=== PATIENT | male | born 1990 ===

== ENCOUNTER 2018-09-04 08:04 | Emergency (ER) | payer OTHER ==
[~2018-09-04] VITALS: Ht 188 cm; Wt 130.0 kg
[2018-09-04 08:14] VITALS: BP 122/72
[2018-09-04] MEDS ORDERED: OFLO5DRO EACHEYE (08:34)
--- NOTE | 2018-09-04 16:35 | ED.ADGEN ---
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 Symptoms began 2 days ago. Patient has not worn contact lenses since that time. Reports some drainage matting left eyelids and blurred vision which clears with blinking wiping. No other symptoms or complaints. [] Review of Systems Review of Systems Review symptoms as per history of present illness. All other review symptoms are negative. All other systems were reviewed and found to be within normal limits, except as documented in this note. Allergies Allergies Allergies Coded Allergies Type Severity Reaction Last Updated Verified No Known Drug Allergies 09/04/18 No Physical Exam Physical Exam Constitutional: Well developed, well nourished, no acute distress, non-toxic appearance. [] HENT: Normocephalic, atraumatic, bilateral external ears normal, oropharynx moist, no oral exudates, nose normal. [] Eyes: PERRLA, EOMI, B conjunctiva injected, and drainage left eyelid, matting of eyelids,] Neck: Normal range of motion, no tenderness, supple, no stridor. [] Cardiovascular:Heart rate regular rhythm, no murmur [] Lungs & Thorax: Bilateral breath sounds clear to auscultation [] Abdomen: Bowel sounds normal, soft, no tenderness, no masses, no pulsatile masses. [] Skin: Warm, dry, no erythema, no rash. [] Back: No tenderness, no CVA tenderness. [] Extremities: No tenderness, no cyanosis, no clubbing, ROM intact, no edema. [] Neurologic: Alert and oriented X 3, normal motor function, normal sensory function, no focal deficits noted. [] Psychologic: Affect normal, judgement normal, mood normal. [] Current Patient Data Vital Signs Vital Signs Date Time Temp Pulse Resp B/P (MAP) Pulse Ox O2 Delivery O2 Flow Rate FiO2 09/04/18 08:14 98.2 98 20 100 Room Air EKG EKG [] Radiology/Procedures Radiology/Procedures [] Course & Med Decision Making Course & Med Decision Making Pertinent Labs and Imaging studies reviewed. (See chart for details) [Topical abx. ] Final Impression Final Impression [1. Bacterial conjunctivitis] Dragon Disclaimer Dragon Disclaimer This electronic medical record was generated, in whole or in part, using a voice recognition dictation system. SHABBIR BROTHERS DO Sep 04, 2018 16:35
== END 2018-09-04 08:30 | disposition home or self-care (01) ==
LOC: ER 08:04
DX: H10.89 Other conjunctivitis (principal); B96.89 Other specified bacterial agents as the cause of diseases classified elsewhere
CPT/HCPCS: 99283

== ENCOUNTER 2019-03-15 19:17 | Emergency (ER) | payer OTHER ==
[~2019-03-15] VITALS: Ht 188 cm; Wt 116.1 kg
[~2019-03-15 19:17] MED LIST: OFLO5DRO EACHEYE
[2019-03-15] MEDS ORDERED: IV NORMAL SALINE 1,000ML 1,000 ML IV SCH (19:32)
--- NOTE | 2019-03-15 19:32 | PHYS DOC ---
Past History Past Medical History: No Pertinent History Past Surgical History: No Surgical History Smoking: Cigarettes Alcohol Use: Occasionally Drug Use: None Adult General Chief Complaint Chief Complaint: FEVER HPI HPI Patient is a 29-year-old male presents complaining of fever, nausea, vomiting, and diarrhea for the past day. No blood in the stool or emesis. Fever is subjective, he did not take his temperature. Recent travel. He was unable to tolerate pineapple juice, but was able to tolerate watermelon juice. Nothing makes the symptoms better or worse. Notes that he has some left-sided abdominal cramping. No sick family members or contacts. No previous surgical history.[] Review of Systems Review of Systems Constitutional: See history of present illness[] Eyes: Denies change in visual acuity, redness, or eye pain [] HENT: Denies nasal congestion or sore throat [] Respiratory: Denies cough or shortness of breath [] Cardiovascular: No chest pain or palpitations[] GI: History of present illness[] : Denies dysuria or hematuria [] Musculoskeletal: Denies back pain or joint pain [] Integument: Denies rash or skin lesions [] Neurologic: Denies headache, focal weakness or sensory changes [] Endocrine: Denies polyuria or polydipsia [] All other systems were reviewed and found to be within normal limits, except as documented in this note. Allergies Allergies Allergies Coded Allergies Type Severity Reaction Last Updated Verified No Known Drug Allergies 09/04/18 No Physical Exam Physical Exam Constitutional: Well developed, well nourished, no acute distress, non-toxic appearance. [] HENT: Normocephalic, atraumatic, bilateral external ears normal, oropharynx moist, no oral exudates, nose normal. [] Eyes: PERRLA, EOMI, conjunctiva normal, no discharge. [] Neck: Normal range of motion, no tenderness, supple, no stridor. [] Cardiovascular:Heart rate is tachycardic with a regular rhythm, no murmur [] Lungs & Thorax: Bilateral breath sounds clear to auscultation [] Abdomen: Bowel sounds normal, soft, mild left-sided abdominal tenderness without rebound, no guarding, no rigidity, able to us sit up and lay back without any difficulty, no masses, no pulsatile masses. [] Skin: Warm, dry, no erythema, no rash. [] Back: No tenderness, no CVA tenderness. [] Extremities: No tenderness, no cyanosis, no clubbing, ROM intact, no edema. [] Neurologic: Alert and oriented X 3, normal motor function, normal sensory function, no focal deficits noted. [] Psychologic: Affect normal, judgement normal, mood normal. [] EKG EKG EKG shows a sinus tachycardia at 112 bpm, normal axis, QTC of 389 ms, incomplete right bundle branch block. No ST elevations. No old EKG available for comparison. Interpreted by me at 2020[] Radiology/Procedures Radiology/Procedures PROCEDURE: CT ABDOMEN PELVIS WO CONTRAST PQRS Compliance Statement: One or more of the following individualized dose reduction techniques were utilized for this examination: 1. Automated exposure control 2. Adjustment of the mA and/or kV according to patient size 3. Use of iterative reconstruction technique CT abdomen/pelvis without contrast 03/15/2019 7:32 PM INDICATION: Left-sided abdominal pain, fever and nausea with vomiting for 2 days. COMPARISON: None available TECHNIQUE: Multiple axial CT images of the abdomen and pelvis were obtained without intravenous contrast. Coronal and sagittal reformats are provided. FINDINGS: Lung bases are clear. Heart size within normal limits. There is diffuse hypoattenuation of the hepatic parenchyma suggestive of hepatic steatosis. This focal fatty sparing involving the lateral segment left hepatic lobe. Spleen is enlarged measuring 16.4 cm in oblique craniocaudal dimension. Adrenal glands are normal in appearance. Pancreas and gallbladder are normal. The abdominal aorta is normal in course and caliber. There are no pathologically enlarged lymph nodes in the abdomen and pelvis. There is no abdominal free fluid. There is no free intraperitoneal air. Few scattered colonic diverticula are present without adjacent inflammation. Appendix appears surgically absent. Small and large bowel are normal in caliber. No evidence for bowel obstruction or inflammation. The kidneys are relatively symmetric in appearance. There is no suspicious renal mass within the limitations of a noncontrast examination. There is no hydronephrosis. There are no calculi within the kidneys, ureters or urinary bladder. Urinary bladder is within normal limits given degree of distention. Prostate and seminal vesicles appear normal. No suspicious osseous abnormality is identified. IMPRESSION: 1. Moderate hepatic steatosis with geographic areas of focal fatty sparing. 2. Splenomegaly measuring 16.4 cm in oblique craniocaudal dimension. 3. Few colonic diverticula without adjacent inflammation. [] Course & Med Decision Making Course & Med Decision Making Pertinent Labs and Imaging studies reviewed. (See chart for details) ED course: Patient arrived, was placed in bed, and tolerated exam well. IV access was established, IV fluids were started. Concern for sepsis was present given the elevated temperature and heart rate. His lactate was normal. Noted the 5-10 white cells in the urine. Starting him on antibiotics for this. Patient's temperature and heart rate came down with antipyretics and IV fluids. Discharged in improved condition. Medical decision making: Patient appears to have a UTI along with the febrile illness and nausea vomiting and diarrhea. Will start him on oral outpatient antibiotics as well as antiemetics. He was Oral intake tolerant while in the emergency department.[] Dragon Disclaimer Dragon Disclaimer This electronic medical record was generated, in whole or in part, using a voice recognition dictation system. Departure Departure: Impression: Primary Impression: Acute febrile illness Additional Impressions: Nausea, vomiting, and diarrhea Urinary tract infection Disposition: 01 HOME, SELF-CARE Condition: IMPROVED Referrals: PCP,PAMELA (PCP) Patient Instructions: Diet for Diarrhea, Adult, Fever, Adult, Nausea and Vomiting, Urinary Tract Infection Additional Instructions: Drink plenty of fluids, frequent small sips. No fatty foods, no milk, and no pepper for the next 48 hours. For the next 48 hours eat a diet rich in carbohydrates with foods such as bananas, rice, applesauce, and toast. Take the medication as prescribed. Follow-up with your regular doctor in 2 days. If you do not have regular doctor list of local clinics will be provided for you. Return to the ER if unable tolerate liquids, blood in stool, emesis, or urine, or any other concerns. Scripts Meloxicam (MELOXICAM) 7.5 Mg Tablet 7.5 MG PO DAILY for PAIN, #20 TAB Prov: FRANKLIN EASTON DO 03/15/19 Hyoscyamine Sulfate (LEVSIN) 0.125 Mg Tablet 0.125 MG PO QID for abdominal pain/cramping, #30 TAB Prov: FRANKLIN EASTON DO 03/15/19 Ondansetron Hcl (ZOFRAN) 4 Mg Tablet 1 TAB PO Q6HRS for nausea or vomiting, #20 TAB Prov: FRANKLIN EASTON DO 03/15/19 Cephalexin (KEFLEX) 500 Mg Capsule 500 MG PO QID for UTI for 10 Days, #40 CAP Prov: FRANKLIN EASTON DO 03/15/19 Problem Qualifiers Additional Impressions: Urinary tract infection Urinary tract infection type: site unspecified Hematuria presence: without hematuria Qualified Codes: N39.0 - Urinary tract infection, site not specified FRANKLIN EASTON DO Mar 15, 2019 19:32
[2019-03-15 19:56] LABS: BASO % 0 % (0-3); EOS % 0 % (0-3); HEMATOCRIT 46.6 % (39.0-53.0); HEMOGLOBIN 15.8 g/dL (13.0-17.5); LYMPH # 0.7 x10^3/uL (1.0-4.8); LYMPH % 9 % (24-48); MEAN CORPUSCULAR HEMOGLOBIN 29 pg (25-35); MEAN CORPUSCULAR HGB CONC 34 g/dL (31-37); MEAN CORPUSCULAR VOLUME 87 fL (79-100); MONO # 0.8 x10^3/uL (0.0-1.1); MONO % 10 % (0-9); NEUT # 6.4 x10^3uL (1.8-7.7); NEUT % 81 % (31-73); PLATELET COUNT 77 x10^3/uL (140-400); RED BLOOD COUNT 5.37 x10^6/uL (4.30-5.70); RED CELL DISTRIBUTION WIDTH 12.9 % (11.5-14.5)
[2019-03-15 20:09] LABS: ALBUMIN 4.1 g/dL (3.4-5.0); ALBUMIN/GLOBULIN RATIO 1.1 (1.0-1.7); CALCIUM 9.3 mg/dL (8.5-10.1); CREATININE 1.3 mg/dL (0.7-1.3); GFR 64.4; POTASSIUM 3.8 mmol/L (3.5-5.1); TOTAL BILIRUBIN 1.2 mg/dL (0.2-1.0); TOTAL PROTEIN 7.8 g/dL (6.4-8.2)
[2019-03-15 20:13] LABS: INFLUENZA A PATIENT NEGATIVE (NEGATIVE); INFLUENZA B PATIENT NEGATIVE (NEGATIVE)
--- NOTE | 2019-03-15 20:13 | RAD ---
PQRS Compliance Statement: One or more of the following individualized dose reduction techniques were utilized for this examination: 1. Automated exposure control 2. Adjustment of the mA and/or kV according to patient size 3. Use of iterative reconstruction technique CT abdomen/pelvis without contrast 03/15/2019 7:32 PM INDICATION: Left-sided abdominal pain, fever and nausea with vomiting for 2 days. COMPARISON: None available TECHNIQUE: Multiple axial CT images of the abdomen and pelvis were obtained without intravenous contrast. Coronal and sagittal reformats are provided. FINDINGS: Lung bases are clear. Heart size within normal limits. There is diffuse hypoattenuation of the hepatic parenchyma suggestive of hepatic steatosis. This focal fatty sparing involving the lateral segment left hepatic lobe. Spleen is enlarged measuring 16.4 cm in oblique craniocaudal dimension. Adrenal glands are normal in appearance. Pancreas and gallbladder are normal. The abdominal aorta is normal in course and caliber. There are no pathologically enlarged lymph nodes in the abdomen and pelvis. There is no abdominal free fluid. There is no free intraperitoneal air. Few scattered colonic diverticula are present without adjacent inflammation. Appendix appears surgically absent. Small and large bowel are normal in caliber. No evidence for bowel obstruction or inflammation. The kidneys are relatively symmetric in appearance. There is no suspicious renal mass within the limitations of a noncontrast examination. There is no hydronephrosis. There are no calculi within the kidneys, ureters or urinary bladder. Urinary bladder is within normal limits given degree of distention. Prostate and seminal vesicles appear normal. No suspicious osseous abnormality is identified. IMPRESSION: 1. Moderate hepatic steatosis with geographic areas of focal fatty sparing. 2. Splenomegaly measuring 16.4 cm in oblique craniocaudal dimension. 3. Few colonic diverticula without adjacent inflammation. Electronically signed by: Hazel Wood MD (03/15/2019 8:10 PM) [facility]
[2019-03-15] MEDS ORDERED: PROCHLORPERAZINE 10 MG/2 ML VIAL. IV ONE (20:15)
[2019-03-15] MEDS ORDERED: KETOROLAC 30 MG/ML VIAL. IV ONE (20:15)
[2019-03-15] MEDS ORDERED: ACETAMINOPHEN 325 MG TABLET PO ONE (20:44)
[2019-03-15 20:50] LABS: AMPHETAMINE/METHAMPHETAMINE NEG (NEG); BARBITURATES NEG (NEG); BENZODIAZEPINES NEG (NEG); CANNABINOIDS POS (NEG); COCAINE NEG (NEG); METHADONE NEG (NEG); OPIATES NEG (NEG); PHENCYCLIDINE NEG (NEG)
[2019-03-15 20:54] LABS: BILIRUBIN,URINE SMALL (NEG); CLARITY,URINE CLEAR; COLOR,URINE AMBER; GLUCOSE,URINE NEG (NEG)
[2019-03-15 20:55] LABS: BACTERIA,URINE FEW /HPF (0-FEW); NITRITE,URINE NEG (NEG); RBC,URINE 0 /HPF (0-2); SQUAMOUS EPITHELIAL CELL,UR OCC /LPF; UROBILINOGEN,URINE 8 mg/dL (0.2 mg/dL)
[2019-03-15] MEDS ORDERED: CEPH-264 PO (21:02)
[2019-03-15] MEDS ORDERED: MELO7.5T29 PO (21:02)
[2019-03-15] MEDS ORDERED: ONDA4TAB7 PO (21:02)
[2019-03-15] MEDS ORDERED: HYOS0.1264 PO (21:02)
[2019-03-15] MEDS ORDERED: CEPHALEXIN 250 MG CAPSULE ONE (21:05)
[2019-03-15 21:12] VITALS: BP 113/78
[2019-03-15] MEDS ORDERED: CEPHALEXIN 250 MG CAPSULE PO ONE (21:15)
--- NOTE | 2019-03-16 06:22 | EKG ---
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
== END 2019-03-15 21:13 | disposition home or self-care (01) ==
LOC: ER 19:17
DX: N39.0 Urinary tract infection, site not specified (principal); R19.7 Diarrhea, unspecified; F17.210 Nicotine dependence, cigarettes, uncomplicated
CPT/HCPCS: 36415; 74176; 80053; 80307; 81001; 83605; 83690; 84484; 85025; 87086; 87804; 93005; 96361; 96374; 96375; 99285; J0780; J1885; J7030

== ENCOUNTER 2019-03-17 19:03 | Emergency (ER) | payer OTHER ==
[~2019-03-17] VITALS: Ht 188 cm; Wt 130.0 kg
[~2019-03-17 19:03] MED LIST changes: +CEPH-264 PO; +HYOS0.1264 PO; +MELO7.5T29 PO; +ONDA4TAB7 PO
--- NOTE | 2019-03-17 19:29 | ED.ADGEN ---
Past History Past Medical History: No Pertinent History Past Surgical History: No Surgical History Smoking: Cigarettes Alcohol Use: Occasionally Drug Use: None Adult General Chief Complaint Chief Complaint ".. I was here for abd. pain.. and sore throat the other day.. They discharged on antibiotics and pain meds.... But I heard that a shot that helped more with my treatment of sore throat... 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 Pt. seen 03/15. For abdomen pain and pharyngitis. Patient treated on discharge for urinary tract infection. Patient follow-up primary care. No recent travel., Septated dictation trip to [place] a few weeks ago. Patient denies any overseas travel. Patient follows with [facility] for care. No history immunosuppression. Does have positive pus pockets on his tonsillar pillars. Patient states he been compliant with his medications. Review of Systems Review of Systems Constitutional: Remote history of fever and chills Eyes: Denies change in visual acuity, redness, or eye pain [] HENT: Denies nasal congestion . History of pharyngitis sore throat [] Respiratory: Denies cough or shortness of breath [] Cardiovascular: No additional information not addressed in HPI [] GI: History of abdominal pain and now is resolved., nausea, vomiting, bloody stools or diarrhea []history of UTI on last visit : Denies dysuria or hematuria [] Musculoskeletal: Denies back pain or joint pain [] Integument: Denies rash or skin lesions [] Neurologic: Denies headache, focal weakness or sensory changes [] Endocrine: Denies polyuria or polydipsia [] All other systems were reviewed and found to be within normal limits, except as documented in this note. Family History Family History Non-contributory Current Medications Current Medications Current Medications Medications (Trade) Dose Ordered Sig/[place] Start Time Stop Time Status Last Admin Dose Admin Prednisone (Prednisone) 60 mg 1X ONCE 03/17/19 19:45 03/17/19 19:46 DC 03/17/19 19:49 60 MG Allergies Allergies Allergies Coded Allergies Type Severity Reaction Last Updated Verified No Known Drug Allergies 09/04/18 No Physical Exam Physical Exam Constitutional: Well developed, well nourished, no acute distress, non-toxic appearance. [] HENT: Normocephalic, atraumatic, bilateral external ears normal, oropharynx moist,, nose normal. []Ejected tonsils with scattered small exudates Eyes: PERRLA, EOMI, conjunctiva normal, no discharge. [] Neck: Normal range of motion, no tenderness, supple, no stridor. [] Cardiovascular:Heart rate regular rhythm, no murmur [] Lungs & Thorax: Bilateral breath sounds clear to auscultation [] Abdomen: Bowel sounds normal, soft, no tenderness, no masses, no pulsatile masses. [] Enlarged spleen and liver edge Skin: Warm, dry, no erythema, no rash. [] Tattoos Back: No tenderness, no CVA tenderness. [] Extremities: No tenderness, no cyanosis, no clubbing, ROM intact, no edema. [] Neurologic: Alert and oriented X 3, normal motor function, normal sensory function, no focal deficits noted. [] Psychologic: Affect normal, judgement normal, mood normal. [] Current Patient Data Vital Signs Vital Signs Date Time Temp Pulse Resp B/P (MAP) Pulse Ox O2 Delivery O2 Flow Rate FiO2 03/17/19 19:06 100.5 105 18 98 Room Air Lab Results Laboratory Tests Test 03/17/19 19:42 Group A Streptococcus Rapid Negative (NEGATIVE) EKG EKG [] Radiology/Procedures Radiology/Procedures [] Course & Med Decision Making Course & Med Decision Making Pertinent Labs and Imaging studies reviewed. (See chart for details) Review chart on 03/15. Patient gargle with Listerine 4 times a day. Patient take meds. Directed. Patient follow-up at [facility]. Patient return if any concerns. [] Final Impression Final Impression 1. Pharyngitis-viral ( Suspect - mono) 2. History UTI[] Dragon Disclaimer Dragon Disclaimer This electronic medical record was generated, in whole or in part, using a voice recognition dictation system. Discharge Summary Visit Information Final Diagnosis Problems Medical Problems: (1) Pharyngitis Status: Acute Brief Hospital Course Allergies Allergies Coded Allergies Type Severity Reaction Last Updated Verified No Known Drug Allergies 09/04/18 No Vital Signs Vital Signs Date Time Temp Pulse Resp B/P (MAP) Pulse Ox O2 Delivery O2 Flow Rate FiO2 03/17/19 19:06 100.5 105 18 98 Room Air Lab Results Laboratory Tests Test 03/17/19 19:42 Group A Streptococcus Rapid Negative (NEGATIVE) Brief Hospital Course Mr. Chin is a 29 old male who presented with sore throat. Thomas viral illness. ( [place]) Discharge Information Condition at Discharge: Stable Disposition/Orders: D/C to Home Dischare Medications Current Medications Prednisone (Prednisone) 60 mg 1X ONCE PO Last administered on 03/17/19at 19:49; Admin Dose 60 MG; Start 03/17/19 at 19:45; Stop 03/17/19 at 19:46; Status DC Active Scripts Active Meloxicam 7.5 Mg Tablet 7.5 Mg PO DAILY Levsin (Hyoscyamine Sulfate) 0.125 Mg Tablet 0.125 Mg PO QID Zofran (Ondansetron Hcl) 4 Mg Tablet 1 Tab PO Q6HRS Keflex (Cephalexin) 500 Mg Capsule 500 Mg PO QID 10 Days Ocuflox (Ofloxacin) 5 Ml Drops 1 Drop EACHEYE QID Velia Disclaimer This chart was dictated in whole or in part using Voice Recognition software in a busy, high-work load, and often noisy Emergency Department environment. It may contain unintended and wholly unrecognized errors or omissions. COREY ROTHMAN MD Mar 17, 2019 19:29
[2019-03-17] MEDS ORDERED: predniSONE 20 MG TABLET PO ONE (19:45)
== END 2019-03-17 20:09 | disposition home or self-care (01) ==
LOC: ER 19:03
DX: J02.9 Acute pharyngitis, unspecified (principal); B97.89 Other viral agents as the cause of diseases classified elsewhere; F17.210 Nicotine dependence, cigarettes, uncomplicated; Z87.440 Personal history of urinary (tract) infections
CPT/HCPCS: 87070; 87880; 99284; J7512